=== PATIENT | female | born 1985 | race Hispanic/Latino ===

== ENCOUNTER 2020-05-31 19:45 | Emergency (ER) | payer SELFPAY ==
[~2020-05-31] VITALS: Ht 152.4 cm; Wt 89.4 kg
[2020-05-31] MEDS ORDERED: KETOROLAC TROMETHAMINE 30 MG/ML VIAL IV STA (20:31)
[2020-05-31] MEDS ORDERED: SODIUM CHLORIDE 0.9% 1000ML 1,000 ML IV SCH (20:45)
[2020-05-31] MEDS ORDERED: IOPAMIDOL 370 MG/ML 200 ML INFUS..BTL INJ ONE (20:55)
[2020-05-31] MEDS ORDERED: SODIUM CHLORIDE 0.9% 50ML 50 ML ONE (20:55)
[2020-05-31] MEDS ORDERED: KETOROLAC TROMETHAMINE 30 MG/ML VIAL ONE (21:02)
[2020-05-31] MEDS ORDERED: SODIUM CHLORIDE 0.9% 1000ML 1,000 ML ONE (21:02)
[2020-05-31] MEDS ORDERED: IBUPROFEN400 MG PO (22:04)
[2020-05-31] MEDS ORDERED: ULTRAM 50MG50 MG PO (22:05)
[2020-05-31 22:21] VITALS: BP 139/77
== END 2020-05-31 22:20 | disposition home or self-care (01) ==
LOC: FSED 20:19
DX: R10.31 Right lower quadrant pain (principal); D25.9 Leiomyoma of uterus, unspecified; N28.1 Cyst of kidney, acquired; F41.9 Anxiety disorder, unspecified; J45.909 Unspecified asthma, uncomplicated
CPT/HCPCS: 74177; 80053; 81003; 81025; 85025; 99284; J1885; J7030; Q9967